=== PATIENT | male | born 1995 | race African-American/Black ===

== ENCOUNTER 2018-06-25 16:48 | Emergency (ER) | payer SELFPAY ==
[~2018-06-25] VITALS: Ht 188 cm; Wt 109.1 kg
[2018-06-25 16:55] VITALS: BP 118/66; PULSE 79; TEMP 98.6
== END 2018-06-25 17:33 | disposition home or self-care (01) ==
LOC: COL.ER 16:48
DX: K62.5 Hemorrhage of anus and rectum (principal)

== ENCOUNTER 2023-12-22 07:56 | Emergency (ER) | payer SELFPAY ==
[~2023-12-22] VITALS: Ht 188 cm; Wt 136.4 kg
[~2023-12-22 07:56] MED LIST: AMOXICILLIN 8751 TAB PO; DOXYCYCLINE 10100 MG PO; FREESTYLE PREC1 EAC5 MC; GLUCOPHAGE500 MG/TAB PO; GLUCOSE TEST ST1 DEV MC
[2023-12-22 08:07] VITALS: TEMP 98.2
[2023-12-22] MEDS ORDERED: Azithromycin 250 MG TAB PO ONE (08:30)
[2023-12-22] MEDS ORDERED: cefTRIAXone 1 G,Lidocaine PF 1% 2.1 ML IM ONE (08:30)
[2023-12-22 08:33] VITALS: BP 127/61; PULSE 94
== END 2023-12-22 08:45 | disposition home or self-care (01) ==
LOC: COL.ER 07:56
DX: N34.2 Other urethritis (principal); A54.9 Gonococcal infection, unspecified
CPT/HCPCS: J0696